=== PATIENT | female | born 1945 | race African-American/Black ===

== ENCOUNTER 2024-04-17 08:38 | Emergency (ER) | payer OTHER ==
[~2024-04-17] VITALS: Ht 162.6 cm; Wt 52.3 kg
[2024-04-17 08:39] VITALS: TEMP 98.2
[2024-04-17] MEDS ORDERED: NS 1,000 ML IV ONE (09:15)
[2024-04-17 09:23] LABS: BASO # 0.1 K/mm3 (0.0-0.2); BASO % 0.6 % (0.0-2.0); EOS # 0.1 K/mm3 (0.0-0.7); EOS % 0.9 % (0.0-4.0); GRAN # 5.4 K/mm3 (1.4-6.5); GRAN % 63.7 % (42.2-75.2); LYMPH % 23.3 % (20.0-51.0); MEAN CELL VOLUME 90 fl (80.0-100.0); MEAN CORPUSCULAR HGB CONC 33 g/dl (33.0-37.0); MEAN PLATELET VOLUME 12.2 fl (7.4-10.4); MONO % 11.1 % (1.7-9.3); PLATELET COUNT 177 K/mm3 (130-400); RED BLOOD COUNT 3.11 M/mm3 (4.10-5.30); REDCELL DISTRIBUTION WIDTH-CV 12.7 % (11.5-14.5)
[2024-04-17 09:32] LABS: HEMATOCRIT 28.1 % (37.0-47.0); HEMOGLOBIN 9.2 g/dl (12.5-16.0); MEAN CORPUSCULAR HEMOGLOBIN 30 pg (27-31)
[2024-04-17 09:44] LABS: ALANINE AMINOTRANSFERASE 12 U/L (0-55); ALBUMIN 3.5 g/dL (3.4-4.8); ALKALINE PHOSPHATASE 61 U/L (40-150); ANION GAP 12 mmol/L (7-16); AST,SGOT 12 U/L (5-34); BILIRUBIN,TOTAL 0.3 mg/dL (0.2-1.2); BLOOD UREA NITROGEN 35 mg/dL (10-20); CHLORIDE 102 mEq/L (98-107); CREATININE, serum 2.78 mg/dL (0.57-1.11); GLUCOSE 306 mg/dL (70-99); POTASSIUM 3.9 mEq/L (3.5-4.5); SODIUM 135 mEq/L (136-145); TOTAL PROTEIN 6.9 g/dl (6.2-8.1)
[2024-04-17 09:51] LABS: TROPONIN-I < 0.010 ng/mL (0.00-0.033)
[2024-04-17 16:00] VITALS: BP 176/73; PULSE 55
== END 2024-04-17 16:05 | disposition home or self-care (01) ==
LOC: COL.ER 08:38 → EDBD 08:39 → COL.ER 16:05
PROVIDERS: Personal Emergency Response Attendant
DX: R07.2 Precordial pain (principal); N28.9 Disorder of kidney and ureter, unspecified
CPT/HCPCS: J7030